=== PATIENT | female | born 1990 | race Caucasian/White ===

== ENCOUNTER 2025-06-26 20:04 | Emergency (ER) | payer OTHER ==
[~2025-06-26 20:04] MED LIST: Iopamidol 370 76% 100 ML VIAL ONE
[2025-06-26 20:51] LABS: #Basophils 0.09 10x3/uL (0.0-0.2); #Eosinophils 0.14 10x3/uL (0.0-0.7); #Monocytes 0.79 10x3/uL (0.11-0.59); #Neutrophils 11.68 10x3/uL (1.40-6.50); %Basophils 0.6 % (0.0-1.0); %Eosinophils 0.9 % (0.0-10.0); %Lymphocytes 21.0 % (21.0-51.0); %Monocytes 4.9 % (0.0-10.0); %Neutrophils 71.8 % (42.0-75.0); Hematocrit 48.7 % (36.0-47.0); Hemoglobin 16.3 g/dL (12.0-16.0); Mean Corpuscular Hemoglobin 30.1 pg (27.0-31.0); Mean Corpuscular Volume 90.0 fL (78.0-98.0); Platelet Count 231 10x3/uL (130-400); Red Blood Cell (RBC) Count 5.41 mill/uL (4.20-5.40); White Blood Cell (WBC) Count 16.24 10x3/uL (4.8-10.8)
[2025-06-26] MEDS ORDERED: Ondansetron PF 4 MG/2 ML Vial ONE (20:57)
[2025-06-26 20:58] LABS: Actual Bicarbonate (HCO3v) 18.1 mEq/L (22-28); Base Excess -8.3 mEq/L (-2.0 to +3.0); Calcium, Ionized (venous) 1.12 mmol/L (1.16-1.32); Chloride (VBG) 100 mmol/L (98-106); Hematocrit-VBG 49 % (36.0-47.0); Hemoglobin (Hb) 16.8 g/dL (11.7-15.5); Potassium (VBG) 3.03 mmol/L (3.70-5.30); Sodium 142 mmol/L (133-146)
[2025-06-26] MEDS ORDERED: Lidocaine 1% w/Epinephrine 1:100K 20 ML VIAL ONE (21:04)
[2025-06-26 21:19] LABS: Lipase 26 U/L (8-78)
[2025-06-26 21:22] LABS: Acetaminophen Less than 10 mcg/mL (Less than 10); Salicylate Less than 8.0 mg/dL (Less than 8.0)
[2025-06-26 21:27] LABS: ALT (SGPT) 26 U/L (Less than 34); AST (SGOT) 38 U/L (11-34); Albumin 4.3 g/dL (3.1-4.5); Alkaline Phosphatase 127 U/L (40-110); Anion Gap 28 mmol/L (10-20); BUN (Urea Nitrogen) 6 mg/dL (7.0-18.7); Bilirubin, Total 0.8 mg/dL (0.3-1.2); Calc. Creatinine Clearance 0 mL/min (70-130); Calcium 9.6 mg/dL (7.8-10.44); Carbon Dioxide 8 mmol/L (22-29); Chloride 105 mmol/L (98-107); Globulin 4.3 g/dL (2.4-3.5); Glucose 218 mg/dL (70-105); Potassium 3.2 mmol/L (3.5-5.1); Sodium 138 mmol/L (136-145)
[2025-06-26 21:40] LABS: Troponin I 0.253 ng/mL (< 0.028)
[2025-06-26] MEDS ORDERED: Vancomycin 1 GM Premix Bag IVPB SCH (21:45)
[2025-06-26] MEDS ORDERED: Boostrix 0.5 ML (Tdap) VIAL (>/=7 yrs of age) IM ONE (21:45)
[2025-06-26] MEDS ORDERED: Cefepime 2 GM VIAL ONE (22:00)
[2025-06-27] MEDS ORDERED: Heparin 5,000 UNITS/ML VIAL ONE ×2 (00:36→00:47)
[2025-06-27 00:45] LABS: INR-International Normal Ratio 1.1; Prothrombin Time 14.3 sec (12.0-14.7)
[2025-06-27 00:51] LABS: PTT 29.7 sec (22.9-36.1)
[2025-06-27 00:54] LABS: Magnesium 1.6 mg/dL (1.6-2.6)
== END 2025-06-27 02:29 | disposition short-term general hospital (02) ==
LOC: ERS 20:04
DX: I26.92 Saddle embolus of pulmonary artery without acute cor pulmonale (principal); I21.4 Non-ST elevation (NSTEMI) myocardial infarction; I51.9 Heart disease, unspecified; S01.111A Laceration without foreign body of right eyelid and periocular area, initial encounter; E87.20 Acidosis, unspecified; Z55.6 Problems related to health literacy; W10.9XXA Fall (on) (from) unspecified stairs and steps, initial encounter
CPT/HCPCS: 12013; 36415; 36416; 70450; 71045; 71260; 72125; 74177; 80053; 80307; 82140; 82805; 83605; 83690; 83735; 84443; 84484; 85025; 85610; 85730; 86850; 86900; 86901; 90471; 90715; 93005; 94760; 96361; 96374; 96375; J0692; J1644; J2250; J2405; J3373; Q9967